=== PATIENT | male | born 1995 | race Hispanic/Latino ===

== ENCOUNTER 2018-03-27 16:45 | Emergency (ER) | payer OTHER ==
[2018-03-27 16:55] VITALS: RESP 18
--- NOTE | 2018-03-27 18:05 | ED PDOC ---
HPI: Abdomen Time Seen by Provider: 03/27/18 17:05 Chief Complaint (Nursing): Abdominal Pain Chief Complaint (Provider): Abdominal Pain History Per: Patient History/Exam Limitations: no limitations Onset/Duration Of Symptoms: Days (x2) Current Symptoms Are (Timing): Still Present Location Of Pain/Discomfort: RLQ, LLQ Quality Of Discomfort: Cramping Associated Symptoms: denies: Fever, Nausea, Vomiting, Diarrhea, Constipation Additional Complaint(s): 22 y/o male with no significant PMHx presents to the ED with a referral from [facility] at [facility] for worsening, cramping lower abdominal pain, onset 2 days ago. Patient reports of one episode of painful urination today. However, patient has urinated since without pain. Patient denies occurrence of symptom before, fever, nausea, vomiting, diarrhea and constipation. PMD: No Provider except Health Clinic while at [facility]. No allergies Past Medical History Reviewed: Historical Data, Nursing Documentation, Vital Signs Vital Signs: Last Vital Signs Temp 98.0 F 03/27/18 20:32 Pulse 72 03/27/18 20:32 Resp 18 03/27/18 20:32 BP 118/73 03/27/18 20:32 Pulse Ox 99 03/27/18 20:32 - Medical History PMH: No Chronic Diseases - Surgical History Surgical History: No Surg Hx - Family History Family History: States: Unknown Family Hx - Allergies Allergies/Adverse Reactions: Allergies Allergy/AdvReac Type Severity Reaction Status Date / Time No Known Allergies Allergy Verified 03/27/18 16:52 Review of Systems ROS Statement: Except As Marked, All Systems Reviewed And Found Negative Constitutional: Negative for: Fever Gastrointestinal: Positive for: Abdominal Pain (worsening lower). Negative for: Nausea, Vomiting, Diarrhea, Constipation Genitourinary Male: Positive for: Dysuria (one episode today otherwise normal ) Physical Exam - Reviewed Nursing Documentation Reviewed: Yes Vital Signs Reviewed: Yes - Physical Exam Appears: Positive for: No Acute Distress Head Exam: Positive for: ATRAUMATIC, NORMOCEPHALIC Skin: Positive for: Normal Color, Warm, Dry Eye Exam: Positive for: Normal appearance, EOMI, PERRL Neck: Positive for: Normal, Painless ROM Cardiovascular/Chest: Positive for: Regular Rate, Rhythm. Negative for: Murmur Respiratory: Positive for: Normal Breath Sounds. Negative for: Respiratory Distress Gastrointestinal/Abdominal: Positive for: Normal Exam, Soft. Negative for: Tenderness, Mass, Guarding, Rebound, Other (Obturator Sign) Back: Positive for: Normal Inspection. Negative for: L CVA Tenderness, R CVA Tenderness Extremity: Positive for: Normal ROM. Negative for: Deformity Neurologic/Psych: Positive for: Alert, Oriented. Negative for: Motor/Sensory Deficits - Laboratory Results Result Diagrams: 03/27/18 18:40 03/27/18 18:40 - ECG O2 Sat by Pulse Oximetry: 98 (RA) Pulse Ox Interpretation: Normal Medical Decision Making Medical Decision Making: Time: 1720 A/P: 22 y/o male presenting with lower abdominal pain. -- Physical Exam unremarkable -- Will send labs and urine -- Toradol for pain -- Will consider imaging if symptoms worse or not improve -- CMP -- Lipase -- CBC with differentials -- Toradol 15 mg IVP -- Urine Culture -- Urinalysis Time: 1945 -- Labs within normal limits, vitals stable. Repeat physical exam shows no change, abdomen soft non-tender. Discussed with patient and mother about possible CT who states it is not necessary at this time. Patient instructed to Tylenol or Motrin for pain and advised to increase water intake and fiber through diet for possible constipation. Patient reports of similar abdominal pain in the past when he had developed constipation. Patient advised to return to the ED for worsening abdominal pain, nausea, vomiting, diarrhea or constipation. Patient is stable for discharge home. Scribe Attestation: Documented by Tanya Disla acting as a scribe for Betty Vaughan MD. Provider Scribe Attestation: All medical record entries made by the Scribe were at my direction and personally dictated by me. I have reviewed the chart and agree that the record accurately reflects my personal performance of the history, physical exam, m edical decision making, and the department course for this patient. I have also personally directed, reviewed, and agree with the discharge instructions and disposition. Disposition - Clinical Impression Clinical Impression: Abdominal discomfort - Patient ED Disposition Is Patient to be Admitted: No Counseled Patient/Family Regarding: Studies Performed, Diagnosis - Disposition Disposition: Routine/Home Disposition Time: 19:46 Condition: STABLE Additional Instructions: Take Motrin or Tylenol for continued pain. Increase water and fiber to prevent constipation. If you develop worsened pain, fever, nausea, vomiting, diarrhea, pain on urination, or other new symptoms, return to the emergency department. Today your lab work is normal and your vitals have remained normal. Instructions: Stomach Ache and Stomach Upset Forms: [facility] (Maori) Print Language: [id number]
[2018-03-27 18:46] LABS: BASO % 0.7 % (0.0-2.0); EOS # 0.1 K/uL (0.0-0.7); EOS % 2.1 % (0.0-4.0); HEMOGLOBIN 12.4 g/dL (12.0-18.0); LYMPH # 1.7 K/uL (1.0-4.3); LYMPH % 26.2 % (20.0-40.0); MEAN CELL VOLUME 61.5 fl (80.0-94.0); MEAN CORPUSCULAR HEMOGLOBIN 19.9 pg (27.0-31.0); MEAN CORPUSCULAR HGB CONC 32.4 g/dL (33.0-37.0); MONO # 0.7 K/uL (0.0-0.8); MONO % 10.9 % (0.0-10.0); NEUT # 3.8 K/uL (1.8-7.0); NEUT % 60.1 % (50.0-75.0); NRBC % 0.2 % (0.0-0.0); RBC 6.23 Mil/uL (4.40-5.90); RED CELL DISTRIBUTION WIDTH 16.1 % (11.5-14.5); WHITE BLOOD COUNT 6.4 K/uL (4.8-10.8)
[2018-03-27 18:50] LABS: URINE BILIRUBIN NEGATIVE (NEGATIVE); URINE BLOOD NEGATIVE (NEGATIVE); URINE CLARITY CLEAR (Clear); URINE COLOR STRAW (YELLOW); URINE GLUCOSE (UA) NEG (Normal); URINE LEUKOCYTE ESTERASE NEG Leu/uL (Negative); URINE PROTEIN NEGATIVE (NEGATIVE); URINE UROBILINOGEN 0.2-1.0 mg/dL (0.2-1.0)
[2018-03-27 19:03] LABS: ALB/GLOB RATIO 1.5 (1.0-2.1); ALBUMIN 4.5 g/dL (3.5-5.0); ALT/SGPT 39 U/L (21-72); AST/SGOT 28 U/L (17-59); BLOOD UREA NITROGEN 11 mg/dl (9-20); CALCIUM 9.7 mg/dL (8.4-10.2); GFR NON-AFRICAN AMERICAN > 60; LIPASE 29 U/L (23-300)
[2018-03-27 20:33] VITALS: BP 118/73; PULSE 72; TEMP 98
[2018-03-31 12:03] VITALS: O2SAT 98
== END 2018-03-27 20:10 | disposition home or self-care (01) ==
LOC: H.ER 16:45
DX: R10.32 Left lower quadrant pain (principal)
CPT/HCPCS: 80053; 81003; 83690; 85025; 87081; 96374; 99283; J1885